=== PATIENT | male | born 1980 | race Caucasian/White ===

== ENCOUNTER 2016-11-15 00:59 | Emergency (ER) | payer BC ==
[2016-11-15 02:18] LABS: Alanine Aminotransferase 26 units/L (7-56); Albumin 4.3 g/dL (3.9-5); Albumin/Globulin Ratio 1.2 %; Alkaline Phosphatase 55 units/L (35-129); Anion Gap 17 mmol/L; BUN/Creatinine Ratio 13; Blood Urea Nitrogen 17 mg/dL (9-20); Carbon Dioxide 27 mmol/L (22-30); Chloride 100.8 mmol/L (98-107); Glucose 137 mg/dL (75-100); Lipase 24 units/L (13-60); Potassium 4.6 mmol/L (3.6-5.0); Sodium 140 mmol/L (137-145); Total Protein 7.8 g/dL (6.3-8.2)
[2016-11-15 02:23] LABS: Basophils % (Auto) 0.2 % (0.0-1.8); Hematocrit 43.3 % (35.5-45.6); Hemoglobin 14.8 gm/dl (11.8-15.2); Mean Corpuscular HGB Conc 34 % (32-34); Mean Corpuscular Hemoglobin 30 pg (28-32); Mean Corpuscular Volume 87 fl (84-94); Platelet Count 238 K/mm3 (140-440); Red Blood Count 4.99 M/mm3 (3.65-5.03); Red Cell Distribution Width 14.2 % (13.2-15.2); White Blood Count 10.6 K/mm3 (4.5-11.0)
[2016-11-15 02:46] LABS: Bilirubin,Urine NEG (Negative); Blood,Urine MOD (Negative); Ketones,Urine TR mg/dL (Negative); Leukocyte Esterase,Urine NEG (Negative); Mucus,Urine FEW /HPF; Nitrite,Urine NEG (Negative); Protein,Urine <15 mg/dL mg/dL (Negative)
[2016-11-15] MEDS ORDERED: ZOFRAN IV ONE (07:01)
[2016-11-15] MEDS ORDERED: NACL 0.9% 1000 ML 1,000 ML IV ONE (07:01)
[2016-11-15] MEDS ORDERED: MORPHINE IV ONE (07:01)
--- NOTE | 2016-11-15 07:07 | Emergency Department Report ---
ED Abdominal Pain HPI - General Chief Complaint: Abdominal Pain Stated Complaint: LEFT LOWER ABD PAIN Time Seen by Provider: 11/15/16 06:56 Source: patient Mode of arrival: Ambulatory Limitations: No Limitations - History of Present Illness Initial Comments: 35-year-old male who presents emergency department with complaint of left upper quadrant pain since 7 PM last night. Patient has had some nausea and vomiting with symptoms. He's had never had this pain before and denies any surgeries in the past. States the pain is crampy in nature and does not radiate. He's had no difficulty with urination. He's had no diarrhea or difficult bowel movements. MD Complaint: abdominal pain -: Sudden Location: LUQ, LLQ Radiation: none Migration to: no migration Severity scale (0 -10): 4 Quality: cramping, aching Consistency: constant Worsens With: nothing Associated Symptoms: nausea, vomiting. denies: diarrhea, fever, chills, constipation - Related Data Previous Rx's Medication Instructions Recorded Last Taken Type HYDROcodone/APAP 5-325 [[place]reg[place] 1 each PO Q6HR PRN #10 tablet 11/15/16 Unknown Rx 5-325 mg TAB] Ibuprofen [Motrin] 600 mg PO Q8H PRN #30 tablet 11/15/16 Unknown Rx Ondansetron [Zofran Odt] 4 mg PO Q8HR #10 tab.rapdis 11/15/16 Unknown Rx Tamsulosin [Flomax] 0.4 mg PO QDAY #7 cap 11/15/16 Unknown Rx Allergies Allergy/AdvReac Type Severity Reaction Status Date / Time No Known Allergies Allergy Verified 11/15/16 01:42 ED Review of Systems ROS: Stated complaint: LEFT LOWER ABD PAIN Other details as noted in HPI Comment: All other systems reviewed and negative Constitutional: denies: chills, fever ENT: denies: ear pain, throat pain Respiratory: denies: cough, shortness of breath, wheezing Cardiovascular: denies: chest pain, palpitations Endocrine: no symptoms reported Gastrointestinal: denies: abdominal pain, nausea, diarrhea Genitourinary: denies: urgency, dysuria Musculoskeletal: denies: back pain, joint swelling, arthralgia Skin: denies: rash, lesions Neurological: denies: headache, weakness, paresthesias Psychiatric: denies: anxiety, depression Hematological/Lymphatic: denies: easy bleeding, easy bruising ED Past Medical Hx - Past Medical History Previous Medical History?: Yes Hx Hypertension: Yes Hx Diabetes: Yes Additional medical history: Obesity - Surgical History Past Surgical History?: No - Family History Family history: no significant - Social History Smoking Status: Never Smoker Substance Use Type: None - Medications Home Medications: Home Medications Medication Instructions Recorded Confirmed Last Taken Type HYDROcodone/APAP 5-325 [Treg[place] 1 each PO Q6HR PRN #10 tablet 11/15/16 Unknown Rx 5-325 mg TAB] Ibuprofen [Motrin] 600 mg PO Q8H PRN #30 tablet 11/15/16 Unknown Rx Ondansetron [Zofran Odt] 4 mg PO Q8HR #10 tab.rapdis 11/15/16 Unknown Rx Tamsulosin [Flomax] 0.4 mg PO QDAY #7 cap 11/15/16 Unknown Rx ED Physical Exam - General Limitations: No Limitations General appearance: alert, in no apparent distress - Head Head exam: Present: atraumatic, normocephalic - Eye Eye exam: Present: normal appearance. Absent: scleral icterus, conjunctival injection - ENT ENT exam: Present: mucous membranes moist - Neck Neck exam: Present: normal inspection - Respiratory Respiratory exam: Present: normal lung sounds bilaterally. Absent: respiratory distress, wheezes, rales - Cardiovascular Cardiovascular Exam: Present: regular rate, normal rhythm, normal heart sounds. Absent: systolic murmur, diastolic murmur, rubs, gallop - GI/Abdominal GI/Abdominal exam: Present: soft, distended, tenderness, normal bowel sounds. Absent: guarding, rebound - Rectal Rectal exam: Present: deferred - Extremities Exam Extremities exam: Present: normal inspection - Back Exam Back exam: Absent: tenderness, CVA tenderness (R), CVA tenderness (L) - Neurological Exam Neurological exam: Present: alert, oriented X3 - Psychiatric Psychiatric exam: Present: normal affect, normal mood - Skin Skin exam: Present: warm, dry, intact, normal color. Absent: rash ED Course Vital Signs 11/15/16 01:28 Temperature 98.1 F Pulse Rate 98 H Respiratory 20 Rate Blood Pressure 128/84 [Right] O2 Sat by Pulse 98 Oximetry ED Medical Decision Making - Lab Data Result diagrams: 11/15/16 01:44 11/15/16 01:44 Laboratory Results - last 24 hr 11/15/16 11/15/16 11/15/16 01:44 01:44 02:17 WBC 10.6 RBC 4.99 Hgb 14.8 Hct 43.3 MCV 87 MCH 30 MCHC 34 RDW 14.2 Plt Count 238 Lymph % (Auto) 8.0 L [place] % (Auto) 5.8 Eos % (Auto) 0.0 Baso % (Auto) 0.2 Lymph # 0.8 L [place] # 0.6 Eos # 0.0 Baso # 0.0 Seg Neutrophils % 86.0 H Seg Neutrophils # 9.1 H Sodium 140 Potassium 4.6 Chloride 100.8 Carbon Dioxide 27 Anion Gap 17 BUN 17 Creatinine 1.3 Estimated GFR > 60 BUN/Creatinine Ratio 13 Glucose 137 H Calcium 9.0 Total Bilirubin 0.40 AST 15 ALT 26 Alkaline Phosphatase 55 Total Protein 7.8 Albumin 4.3 Albumin/Globulin Ratio 1.2 Lipase 24 Urine Color Yellow Urine Turbidity Clear Urine pH 6.0 Ur Specific [place] 1.023 Urine Protein <15 mg/dl Urine Glucose (UA) Neg Urine Ketones Tr Urine Blood Mod Urine Nitrite Neg Urine Bilirubin Neg Urine Urobilinogen 2.0 Ur Leukocyte Esterase Neg Urine WBC (Auto) 4.0 Urine RBC (Auto) 59.0 U Epithel Cells (Auto) 1.0 Urine Mucus Few - Medical Decision Making 35-year-old male with left upper quadrant and left lower quadrant pain for several hours. He's had some nausea and vomiting. Slightly uncomfortable on clinical exam. He has a CBC count of 10.6 with a slight left shift. Plan the CAT scan him given the moderate tenderness on CT. Plan IV fluids and Zofran and pain meds and will reassess. Patient with a 4 mm nonobstructing stone on the left. This consistent with his symptoms and red blood cell count in his urine. Plan to treat with NSAIDs antiemetics and Flomax as an outpatient. Plan to give referral to urology. Portions of this chart were dictated with dictation software. There may be dictation errors contained within this note. Critical care attestation.: If time is entered above; I have spent that time in minutes in the direct care of this critically ill patient, excluding procedure time. ED Disposition Clinical Impression: Renal colic on left side Disposition: DC-01 TO HOME OR SELFCARE Is pt being admited?: No Condition: Stable Instructions: Renal Colic (ED) Additional Instructions: Please follow up with urology as an outpatient. Prescriptions: HYDROcodone/APAP 5-325 [Trego 5-325 mg TAB] 1 each PO Q6HR PRN #10 tablet PRN Reason: Pain Ibuprofen [Motrin] 600 mg PO Q8H PRN #30 tablet PRN Reason: Pain Ondansetron [Zofran Odt] 4 mg PO Q8HR #10 tab.rapdis Tamsulosin [Flomax] 0.4 mg PO QDAY #7 cap Referrals: PRIMARY CARE, [Primary Care Provider] - 3-5 Days ROSAS INFANTE MD [Staff Physician] - 3-5 Days (Call for a follow-up appointment.)
[2016-11-15] MEDS ORDERED: NACL ONE (08:14)
--- NOTE | 2016-11-15 08:48 | Cat Scan Report ---
CT SCAN OF THE ABDOMEN AND PELVIS WITH CONTRAST: HISTORY: Left upper quadrant abdominal pain. TECHNIQUE: Helical CT in 1.25mm intervals following IV contrast. Sagittal and coronal reconstructions. FINDINGS: The liver is normal in size and is without focal defect. No gallstones or biliary dilatation are noted. The spleen and pancreas demonstrate a normal size and attenuation with no evidence of abnormal mass. The kidneys are normal in size and position with no evidence of hydronephrosis or mass. A 4 mm calyceal stone is identified at the inferior pole of the left kidney. No additional nephrolithiasis. The adrenal glands are normal. There is no intestinal obstruction or ascites. Normal appendix. The abdominal aorta is normal. No abnormalities are identified within the retroperitoneum or mesentery. There is no evidence of peritoneal air or fluid. There is no evidence of any abnormal masses or fluid collections within the pelvis. No adenopathy is identified. The bladder is normal. IMPRESSION: 4 mm nonobstructing left renal stone. Otherwise, unremarkable CT of the abdomen and pelvis.
[2016-11-15] MEDS ORDERED: TORADOL IV ONE (09:12)
[2016-11-15] MEDS ORDERED: ZOFRAN ONE (09:38)
[2016-11-15] MEDS ORDERED: MORPHINE ONE (09:39)
[2016-11-15 11:15] VITALS: BP 132/70
== END 2016-11-15 11:16 | disposition home or self-care (01) ==
LOC: ED 00:59
DX: N23 Unspecified renal colic (principal); I10 Essential (primary) hypertension; E11.9 Type 2 diabetes mellitus without complications
CPT/HCPCS: 36415; 74177; 80053; 81001; 83690; 85025; 96361; 96374; 96375; 99284; J1885; J2270; J2405; J7030; Q9967